=== PATIENT | female | born 1945 | race Caucasian/White ===

== ENCOUNTER 2016-07-19 11:08 | Emergency (ER) | payer MEDICARE, OTHER ==
[~2016-07-19 11:08] MED LIST: AMIT25 PO; AMIT50 PO; AMIT75 PO; ASAB PO; ATEN25 PO; ATEN50 PO; BIDIL20/37 PO; BRILINTA90 MG PO; BUSPAR10 PO; COLCH6 PO; COREG25 PO; CYMBALTA60 PO; DEMA20 PO; ENDOCET1 TA3 PO; HUMALOGPEN SC; INSNOV7030 SC; KLOR-CON M2020 MEQ PO; LANTUSCART SC; LEVEMIR SC; LIPITOR40; LORTAB10 PO; LOTE10 PO; MELATONIN5 M1 PO; METHOC500B PO; METHOC750B PO; NORCO1 TAB PO; NORV10 PO; NOVOLOG SC; NOVOLOGMIX SC; NOVOPEN SC; NOVOPENMIX SC; OCEAN NAS; PR12.5 PO; PRIN10 PO; PROAIR HFA INH; PROTONIX PO; RESTASIS OPH; TOF50 PO; TRAZ100 PO; TYLENOL 8 HR650 MG PO; ULTRAM ER300 MG PO; VITAMIN B PO; VITAMIN D31000 UNIT PO; X5 PO; Z10 PO; Z100 PO; Z300 PO; ZAROX2.5B PO; ZOCOR20 PO
[2016-07-19 12:23] LABS: BASOPHILS 0.1 %; BASOPHILS ABSOLUTE 0.01 10/3/uL (0.0-0.16); EOSINOPHILS 0.1 %; EOSINOPHILS ABSOLUTE 0.01 10/3/uL (0.0-0.53); IMMATURE GRANULOCYTES 0.4 %; IMMATURE GRANULOCYTES ABSOLUTE 0.05 10/3/uL (0.0-0.11); LYMPHOCYTES 14.2 %; LYMPHOCYTES ABSOLUTE 1.83 10/3/uL (0.67-4.30); MEAN CORPUSCULAR HEMOGLOB 27.9 pg (26.0-34.0); MEAN PLATELET VOLUME 10.8 fL (9.2-13.0); MONOCYTES 2.6 %; MONOCYTES ABSOLUTE 0.33 10/3/uL (0.21-1.20); NEUTROPHILS 82.6 %; PLATELET COUNT 246 10/3/uL (150-400); RBC DISTRIBUTION WIDTH 15.6 % (12.0-16.0); WHITE BLOOD CELLS 12.9 10/3/uL (4.5-10.5)
[2016-07-19 12:24] LABS: HEMATOCRIT 38.3 % (36.0-48.0); HEMOGLOBIN 12.6 g/dL (12.0-16.0); MANUAL DIFF NO %; MEAN CORPUS HGB CONC 32.9 g/dL (32.0-36.0); MEAN CORPUSCULAR VOLUME 84.9 fL (80-100); RED CELL COUNT 4.51 10/6/uL (4.0-5.6)
[2016-07-19 12:39] LABS: A/G RATIO 1.1 (0.7-1.9); ALBUMIN 4.1 G/DL (3.5-5.0); ALKALINE PHOSPHATASE 100 U/L (45-117); BUN (BLOOD UREA NITROGEN) 63 MG/DL (6-23); CALCIUM, SERUM 9.8 MG/DL (8.5-10.4); CHLORIDE, SERUM 96 MMOL/L (96-112); CO2 (CARBON DIOXIDE) 29 MMOL/L (24-34); CREATININE 1.87 MG/DL (0.55-1.02); GFR AFRICAN AMERICAN 30 ML/MIN (>=60); GFR NON AFRICAN AMERICAN 26 ML/MIN (>=60); GLOBULIN 3.9 G/DL (2.5-4.1); GLUCOSE, SERUM 104 MG/DL (60-99); POTASSIUM, SERUM 3.4 MMOL/L (3.5-5.3); SGOT(AST) 21 U/L (5-40); SGPT(ALT) 21 U/L (5-65); SODIUM, SERUM 137 MMOL/L (135-148); TOTAL BILIRUBIN 0.7 MG/DL (0-1.2)
[2016-07-19 13:02] LABS: ASCORBIC ACID (UR NOT ORDER) NEG (NEG); BILIRUBIN, URINE NEGATIVE (NEG); KETONE, URINE NEGATIVE (NEG); NITRITE (URINE) NEG (NEG); WBC (NOT ORDERED) (RFLEX) 3 (0-5)
[2016-07-19 13:04] LABS: LEUKOCYTE ESTERASE(NOT OR TRACE (NEG)
[2016-07-19 13:05] LABS: ER URINALYSIS TAT 0 Hrs 42 Mins
[2016-07-19 13:39] LABS: CPK 41 U/L (0-200)
[2016-11-25] MEDS ORDERED: XANAX1 MG PO (02:54)
[2016-11-25] MEDS ORDERED: COREG25 PO (02:54)
[2016-11-25] MEDS ORDERED: CIP2 PO (02:54)
[2016-11-25] MEDS ORDERED: METHOC500B PO (02:55)
[2016-11-25] MEDS ORDERED: DEMA100 PO (02:56)
[2016-11-25] MEDS ORDERED: BRILINTA90 MG PO (02:56)
[2016-11-25] MEDS ORDERED: NORV10 PO (02:56)
[2016-11-25] MEDS ORDERED: BIDIL20/37 PO (02:56)
[2016-11-25] MEDS ORDERED: MELATONIN10 M2 PO (02:57)
[2016-11-25] MEDS ORDERED: ASAB PO (02:57)
[2016-11-25] MEDS ORDERED: VITAMIN B PO (02:58)
[2016-11-25] MEDS ORDERED: VITAMIN D31000 UNIT PO (02:58)
[2016-11-25] MEDS ORDERED: ZAROX2.5B PO (02:59)
[2016-11-25] MEDS ORDERED: CYMBALTA60 PO (02:59)
[2016-11-25] MEDS ORDERED: ZOCOR20 PO (03:00)
[2016-11-25] MEDS ORDERED: AMIT75 PO (03:00)
[2016-11-25] MEDS ORDERED: KDUR20 PO (03:00)
[2016-11-25] MEDS ORDERED: NORCO1 TAB PO (03:01)
[2016-11-25] MEDS ORDERED: HUMALOGPEN (03:01)
[2016-11-25] MEDS ORDERED: Z300 PO (03:02)
[2016-11-25] MEDS ORDERED: LANTUSCART SC (03:03)
[2016-11-25] MEDS ORDERED: GLUCAGON IM (03:06)
[2016-11-25] MEDS ORDERED: PROAIR HFA INH (03:07)
[2016-11-28] MEDS ORDERED: Z100 PO (10:30)
[2016-11-28] MEDS ORDERED: CEFADROXIL1 GM PO (10:35)
== END 2016-07-19 15:49 | disposition home or self-care (01) ==
LOC: ER 11:08
PROVIDERS: Emergency Medicine
DX: S20.219A Contusion of unspecified front wall of thorax, initial encounter (principal); E11.649 Type 2 diabetes mellitus with hypoglycemia without coma; J45.909 Unspecified asthma, uncomplicated; I13.0 Hypertensive heart and chronic kidney disease with heart failure and stage 1 through stage 4 chronic kidney disease, or unspecified chronic kidney disease; N18.9 Chronic kidney disease, unspecified; I50.9 Heart failure, unspecified; E11.22 Type 2 diabetes mellitus with diabetic chronic kidney disease; F41.9 Anxiety disorder, unspecified; Z91.041 Radiographic dye allergy status; Z88.8 Allergy status to other drugs, medicaments and biological substances; Z79.899 Other long term (current) drug therapy; Z79.82 Long term (current) use of aspirin; Z79.4 Long term (current) use of insulin; X58.XXXA Exposure to other specified factors, initial encounter
CPT/HCPCS: 70450; 71020; 71120; 80053; 81001; 82550; 82962; 83690; 85025; 90471; 90714; 93005; 99285